=== PATIENT | male | born 2005 | race Caucasian/White ===

== ENCOUNTER 2025-11-07 14:10 | Emergency (ER) | payer OTHER, SELFPAY ==
[2025-11-07 14:12] VITALS: BP 134/82
[2025-11-07 14:38] VITALS: BMI 26.7
[2025-11-07 14:42] LABS: COVID-19 Antigen Negative (Negative)
--- NOTE | 2025-11-07 15:23 | ED.GENMED ---
History of Present Illness
<Elinor Hassan PA-C - Last Filed: 11/07/25 20:30>
General
Chief Complaint: Weakness
Source: patient
Exam Limitations: none
Time Seen by Provider: 11/07/25 14:40
History of Present Illness
History of Present Illness:
20yoM with a history of autism and Guilbert disease presenting with his parents for evaluation of fever. Patient became sick 2 days ago with flu-like symptoms. Symptoms include high fevers, body aches, cough, vomiting, headache, neck pain, and low
back pain. Mother has been treating him holistically at home. Patient's main complaint at this point is low back pain. He reported lower extremity tingling to his mother earlier and she was worried because he did not seem to be walking in a
straight line. Mother is mainly concerned about meningitis. No history of IV drug use, recent travel, or sick contacts. Of note, patient follows with a naturopathic doctor and was being treated with ivermectin and methylene blue up until a month
ago for bartonella.
Phy Exam
<Elinor Hassan PA-C - Last Filed: 11/07/25 20:30>
Physical Exam
Physical Exam:
Appears uncomfortable and flushed due to high fever, non-toxic and otherwise well appearing
General Physical Exam
General Presentation: well appearing and no apparent distress
General Skin: warm and dry
General Habitus: normal
General Mental: alert
ENT Exam
ENT Exam: TM's normal, pharynx normal, neck supple, normocephalic and other (Full ROM of cervical spine without meningismus )
Cardiovascular Exam
Cardiovascular Exam: regular rate/rhythm
Pulmonary Exam
Pulmonary Exam: lungs clear, no respiratory distress, no rales, no crackles, no rhonchi and no wheezing
Gastrointestinal Exam
Gastrointestinal Exam: non tender, soft and non distended
Neurological Exam
Neurological Exam: alert
Shiloh Coma Scale
Eye Opening: Spontaneous
Verbal Response: Oriented
Motor Response: Obeys Commands
GCS Total Score: 15
Skin Exam
Skin Exam: normal color and warm/dry
Psychiatric Exam
Psychiatric Exam: normal mood/affect
Sepsis
<Elinor Hassan PA-C - Last Filed: 11/07/25 20:30>
Sepsis Screening
Sepsis Assessment: Sepsis Ruled Out
Sepsis Screen
Sepsis Screen: Sepsis Ruled Out
Date: 11/07/25
Time: 20:22
Course
<Elinor Hassan PA-C - Last Filed: 11/07/25 20:30>
Orders/Labs/Results
Orders:
Orders
11/07/25 14:18
COVID-19 Antigen Urgent
Source: Nasal Swab
Influenza A+B Rapid Molecular Urgent
JAMIN Source: Nasal Swab
Specimen Description:
11/07/25 15:20
0.9% Sodium Chloride 1000 ml [Nss] 2,000 ml IV BOLUS
Acetaminophen [Tylenol] 1,000 mg PO NOW STA
Ketorolac [Toradol] 15 mg IV NOW STA
11/07/25 15:21
CR Chest - 2 Views Urgent
Comment:
Reason For Exam: Cough, fever
11/07/25 15:27
Acetaminophen 1000MG/100Ml [Ofirmev] 1,000 mg in 100 ml IV ONCE
Acetaminophen IV Indication:: ED Narcotic Naive Pt-ONCE
11/07/25 15:57
Complete Blood Count/With Diff Urgent
Comprehensive Metabolic Panel Urgent
Lactate Level [Lactic Acid] Urgent
Monotest Urgent
Urinalysis Reflex To Culture Urgent
Date Specimen was Collected: 11/07/25
Time Specimen was Collected: 15:45
Urine Microscopic Reflex Cult Urgent
Blood Culture Q30M
JAMIN Source: Blood/Venous
Specimen Description:
Urine Culture Urgent
JAMIN Source: U
Specimen Description:
Date Specimen was Collected: 11/07/25
Time Specimen was Collected: 15:45
11/07/25 18:23
Doxycycline [Vibramycin] 100 mg PO NOW STA
11/07/25 18:37
Blood Culture Q30M
JAMIN Source: Blood/Venous
Specimen Description:
Abnormal Lab Results
11/07/25
15:57
RDW 11.1 L %
(11.5-14.5)
Absolute Lymphs (auto) 0.8 L 10^3/uL
(1.2-3.4)
Absolute Monos (auto) 0.7 H 10^3/uL
(0.1-0.6)
Neutrophils % 78.0 H %
(42.2-75.2)
Lymphocytes % 11.8 L %
(20.5-51.1)
Monocytes % 9.8 H %
(1.7-9.3)
Sodium 131 L mmol/L
(135-145)
Chloride 96 L mmol/L
(98-107)
Total Bilirubin 2.0 H mg/dl
(0.2-1.3)
Leukocyte Esterase Rfl 1+ A
(Negative)
Urine Bacteria (Reflex) Few A
(Negative)
Urine Albumin (Reflex) 1+ A
(Neg - Trace)
11/07/25 15:57
11/07/25 15:57
Vital Signs
Initial and Last Documented VS:
Initial Vital Signs
Temp Pulse Resp BP Pulse Ox
103 F H 118 18 134/82 99
11/07/25 14:12 11/07/25 14:12 11/07/25 14:12 11/07/25 14:12 11/07/25 14:12
Last Documented Vital Signs
Temp Pulse Resp BP Pulse Ox
99.2 F 99 22 134/82 99
11/07/25 18:16 11/07/25 16:55 11/07/25 16:55 11/07/25 14:12 11/07/25 16:55
<Maida Frazier MD - Last Filed: 11/07/25 17:03>
Orders/Labs/Results
Orders:
Orders
11/07/25 14:18
COVID-19 Antigen Urgent
Source: Nasal Swab
Influenza A+B Rapid Molecular Urgent
JAMIN Source: Nasal Swab
Specimen Description:
11/07/25 15:20
0.9% Sodium Chloride 1000 ml [Nss] 2,000 ml IV BOLUS
Acetaminophen [Tylenol] 1,000 mg PO NOW STA
Ketorolac [Toradol] 15 mg IV NOW STA
11/07/25 15:21
CR Chest - 2 Views Urgent
Comment:
Reason For Exam: Cough, fever
11/07/25 15:27
Acetaminophen 1000MG/100Ml [Ofirmev] 1,000 mg in 100 ml IV ONCE
Acetaminophen IV Indication:: ED Narcotic Naive Pt-ONCE
11/07/25 15:57
Complete Blood Count/With Diff Urgent
Comprehensive Metabolic Panel Urgent
Lactate Level [Lactic Acid] Urgent
Monotest Urgent
Urinalysis Reflex To Culture Urgent
Date Specimen was Collected: 11/07/25
Time Specimen was Collected: 15:45
Urine Microscopic Reflex Cult Urgent
Blood Culture Q30M
JAMIN Source: Blood/Venous
Specimen Description:
Urine Culture Urgent
JAMIN Source: U
Specimen Description:
Date Specimen was Collected: 11/07/25
Time Specimen was Collected: 15:45
11/07/25 18:23
Doxycycline [Vibramycin] 100 mg PO NOW STA
11/07/25 18:37
Blood Culture Q30M
JAMIN Source: Blood/Venous
Specimen Description:
Abnormal Lab Results
11/07/25
15:57
RDW 11.1 L %
(11.5-14.5)
Absolute Lymphs (auto) 0.8 L 10^3/uL
(1.2-3.4)
Absolute Monos (auto) 0.7 H 10^3/uL
(0.1-0.6)
Neutrophils % 78.0 H %
(42.2-75.2)
Lymphocytes % 11.8 L %
(20.5-51.1)
Monocytes % 9.8 H %
(1.7-9.3)
Sodium 131 L mmol/L
(135-145)
Chloride 96 L mmol/L
(98-107)
Total Bilirubin 2.0 H mg/dl
(0.2-1.3)
Leukocyte Esterase Rfl 1+ A
(Negative)
Urine Bacteria (Reflex) Few A
(Negative)
Urine Albumin (Reflex) 1+ A
(Neg - Trace)
11/07/25 15:57
11/07/25 15:57
Vital Signs
Initial and Last Documented VS:
Initial Vital Signs
Temp Pulse Resp BP Pulse Ox
103 F H 118 18 134/82 99
11/07/25 14:12 11/07/25 14:12 11/07/25 14:12 11/07/25 14:12 11/07/25 14:12
Last Documented Vital Signs
Temp Pulse Resp BP Pulse Ox
99.2 F 99 22 134/82 99
11/07/25 18:16 11/07/25 16:55 11/07/25 16:55 11/07/25 14:12 11/07/25 16:55
<Elinor Hassan PA-C - Last Filed: 11/07/25 20:30>
MDM/Problems Addressed
Differential Diagnosis Includes:
20yoM here with fever x 2 days with associated headache, body aches, neck/back pain. Temp 103 in triage and HR 118. BP stable. Patient appears flushed due to fever and fatigued but otherwise well appearing and non-toxic. Mother worried about
meningitis although no nuchal rigidity noted on exam. Differential diagnosis includes: influenza, other viral illness, pneumonia, dehydration
Initial ED plan: COVID/flu testing sent in triage are negative. Check septic workup including blood cultures, lactate, monospot, UA, and CXR. 2L NS bolus, IV Toradol, and Ofirmev ordered for symptoms.
<Elinor Hassan PA-C - Last Filed: 11/07/25 20:30>
*Pulse Oximetry
SaO2: 99
Oxygen Mode of Delivery: Room air
Patient hypoxic: no
*Critical Care Note
Total Time (30-74mins, 75-104mins- exclusive of procedures): Not Applicable
<Elinor Hassan PA-C - Last Filed: 11/07/25 20:30>
Update Note
Update Note:
Patient mildly dehydrated on labs including sodium of 131 chloride of 96. Creatinine within normal limits. Both white count and lactate normal. Bilirubin 2.0 with otherwise normal LFTs consistent with known Gilbert disease. CXR shows R lower
lobe infiltrate per my interpretation. Patient feeling much better on reassessment and appears much more comfortable after defervescence. Repeat temperature 99.2. No indication for hospitalization and parents feel comfortable with discharge.
Patient also evaluated by Dr. Frazier. He was started on a course of doxycycline. Supportive care reviewed. Advised f/u with PCP and ED return precautions reviewed. Patient ambulated with steady gait out of emergency department.
ED Attending Note
<Elinor Hassan PA-C - Last Filed: 11/07/25 20:30>
-
Portions of this chart may have been created with voice recognition software.� Occasional wrong word or��sound alike� substitutions may have occurred due to the inherent limitations of voice recognition software.
<Maida Frazier MD - Last Filed: 11/07/25 17:03>
ED Attending Note
Patient seen and examined by attending physician: Yes
I performed the substantive portion of visit, reviewed & personally made and approve the management plan that is documented in note by myself or GUNNAR.: Yes
ED Attending Note:
Patient appears flushed with nontoxic. There is no nuchal rigidity on exam and patient is freely moving neck and sitting upright. Patient does have right lower lobe crackles on lung exam and is coughing. I suspect he does have pneumonia. Patient
has no respiratory distress
Discharge Plan
Departure
Patient Disposition: Home (Routine Discharge)
Date of Disposition: 11/07/25
Time of Disposition: 18:28
Patient with high blood pressure during this ER visit?: No
Discharge Problem:
Pneumonia, Fever
Instructions: Pneumonia
Prescriptions:
New
doxycycline hyclate 100 mg capsule
100 mg PO BID Qty: 14 0RF
Referrals:
[facility] [Provider Group]
Activity Restrictions/Additional Instructions:
Take antibiotics as prescribed. Drink plenty of fluids and stay hydrated. Take Tylenol 650 mg and ibuprofen 600 mg every 6 hours as needed for fever/body aches.
We will call you if blood cultures come back positive.
Please follow-up closely with your family doctor. Return to the ER with any new or worsening symptoms.
Interventions
Interventions:
*General Assessment Last Done: 11/07/25 16:45
*Neglect/Abuse Screening Last Done: 11/07/25 16:45
*ED COVID-19 Vaccine History Last Done: 11/07/25 16:45
*ED Influenza Vaccine History Last Done: 11/07/25 16:45
[facility] Risk Assessment Tool Last Done: 11/07/25 18:03
*Risk Screen - Suicide (C-SSRS) Last Done: 11/07/25 16:45
*Nursing Disposition Last Done: 11/07/25 18:56
ED- Cardiac Assessment Last Done: 11/07/25 16:45
ED- Neurological Assessment Last Done: 11/07/25 16:45
ED- Pulmonary Assessment Last Done: 11/07/25 16:45
Discharge Date and Time
Discharge Date/Time: 11/07/25 18:57
Print Language: [id number]
[2025-11-07] MEDS: NSS 2000 IV (15:57)
[2025-11-07] MEDS: TORADOL 15 MG IV (15:58)
[2025-11-07 16:17] LABS: Hematocrit 42.9 % (39.0-52.0); Hemoglobin 15.7 g/dL (13.0-18.0); Mean Corp Hgb Conc. 36.6 g/dL (33.0-37.0); Mean Corpuscular Volume 84.0 fL (80.0-94.0); Nucleated Red Blood Cells % 0 % (-); Platelet Count 168 10^3/uL (130-400); Red Cell Dist. Width 11.1 % (11.5-14.5)
[2025-11-07 16:25] LABS: Urine Character Clear (Clear)
[2025-11-07 16:35] LABS: ALT (SGPT) 29 U/L (0-50); AST (SGOT) 25 U/L (17-59); Albumin 4.8 g/dl (3.5-5.0); Alkaline Phosphatase 61 U/L (38-126); Blood Urea Nitrogen 11 mg/dl (9-20); Calcium 9.5 mg/dl (8.4-10.2); Carbon Dioxide 23 mmol/L (22-30); Chloride 96 mmol/L (98-107); Estimated Creatinine Clearance > 125 ml/min; Glucose 99 mg/dl (70-99); Potassium 4.0 mmol/L (3.5-5.1); Sodium 131 mmol/L (135-145); Total Protein 7.4 g/dl (6.3-8.2); eGFR > 60.00
[2025-11-07 16:38] LABS: Urine Red Blood Cell 0-2 /HPF (0-2); Urine White Cell 0-2 /HPF (0-5)
[2025-11-07] MEDS: OFIRMEV 100 IV (16:54)
[2025-11-07] MEDS: VIBRAMYCIN 100 MG PO (18:38)
== END 2025-11-07 18:57 | disposition home or self-care (01) ==
LOC: EMR 14:10
PROVIDERS: Emergency Medicine; Physician Assistant; EMERGENCY PHYSICIAN Emergency Medicine; FAMILY PHYSICIAN Family Medicine
DX: J18.9 Pneumonia, unspecified organism (principal); E86.0 Dehydration; F84.0 Autistic disorder; E80.4 Gilbert syndrome
CPT/HCPCS: 99284; 96374; 96375; 96361 ×2; 71046; 80053; 81003; 81015; 83605; 85025; 86308; 87040; 87086; 87502; 87811